=== PATIENT | female | born 1985 | race African-American/Black ===

== ENCOUNTER → 2020-03-06 | Outpatient (CLI) | payer OTHER | LOC: M.ULTRA 02-18 07:30 | PROVIDERS: ATTEND Registered Nurse Diabetes Educator | DX: R10.2 Pelvic and perineal pain (principal); R53.83 Other fatigue; M25.50 Pain in unspecified joint; G44.1 Vascular headache, not elsewhere classified; Z90.49 Acquired absence of other specified parts of digestive tract ==

== ENCOUNTER 2020-11-18 18:50 | Emergency (ER) | payer OTHER ==
[~2020-11-18] VITALS: Ht 162.6 cm; Wt 59.0 kg
[2020-11-18 19:36] LABS: URINE BILIRUBIN NEGATIVE (Negative); URINE BLOOD 3+ (Negative); URINE CLARITY CLEAR; URINE COLOR YELLOW; URINE GLUCOSE-RANDOM NEGATIVE (Negative); URINE KETONES TRACE (Negative); URINE LEUKOCYTES-REFLEX 1+ (Negative); URINE PROTEIN NEGATIVE (Negative); URINE UROBILINOGEN 0.2 E.U./dl (0.2-1.0)
[2020-11-18 19:39] LABS: ABSOLUTE EOSINOPHILS 0.1 thou/uL (0.0-0.7); ABSOLUTE LYMPHOCYTES 2.4 thou/uL (0.8-5.3); ABSOLUTE MONOCYTES 0.5 thou/uL (0.0-1.2); BASOPHILS 0.4 %; EOSINOPHILS 1.8 %; HEMATOCRIT 37.2 % (37.0-47.0); HEMOGLOBIN 12.2 gm/dL (12.0-15.0); LYMPHOCYTES 33.5 %; MCH 28.1 pg (26.0-34.0); MCHC 32.6 g/dL (28.0-37.0); MONOCYTES 7.6 %; MPV 7.2 fl. (7.2-11.1); NUCLEATED RBCS 0 /100WBC; PLATELET COUNT* 242 thou/uL (150-400); POLYS 56.7 %; RBC 4.33 mil/uL (4.20-5.00); RDW-CV 14.4 % (10.5-14.5); WBC 7.1 thou/uL (4.0-11.0)
[2020-11-18 19:45] LABS: CALCIUM 8.1 mg/dL (8.5-10.1); CREATININE 0.7 mg/dL (0.6-1.3); POTASSIUM 3.8 mmol/L (3.5-5.1)
[2020-11-18 19:49] LABS: ALBUMIN 3.6 g/dL (3.4-5.0); TOTAL BILIRUBIN 0.2 mg/dL (<0.1-1.0); TOTAL PROTEIN 7.5 g/dL (6.4-8.2)
[2020-11-18 19:50] LABS: URINE NITRITE-REFLEX POSITIVE (Negative)
[2020-11-18 19:54] LABS: SQUAMOUS 0-3 Few /LPF (0-3); URINE WBC-REFLEX 6-15 Few /HPF (0-5)
[2020-11-18 19:55] LABS: BACTERIA-REFLEX 1-9 Few /HPF (None Seen); CASTS None Seen /LPF (None Seen); CRYSTALS None Seen /LPF (None Seen); MUCUS None Seen strn/LPF (None Seen)
[2020-11-18] MEDS ORDERED: AUGMENTIN 875-1 EACH PO (21:37)
[2020-11-18] MEDS ORDERED: BENTYL 10 MG CA10 M1 PO (21:37)
[2020-11-18] MEDS ORDERED: PYRIDIUM100 M1 PO (21:37)
[2020-11-18 21:38] VITALS: BP 123/60
== END 2020-11-18 21:47 | disposition home or self-care (01) ==
LOC: M.ERS 18:50
PROVIDERS: Nurse Practitioner Family
DX: H66.92 Otitis media, unspecified, left ear (principal); N39.0 Urinary tract infection, site not specified; Z90.49 Acquired absence of other specified parts of digestive tract

== ENCOUNTER 2021-06-23 11:33 | Emergency (ER) | payer OTHER ==
[~2021-06-23] VITALS: Ht 160 cm; Wt 59.0 kg
[~2021-06-23 11:33] MED LIST: AUGMENTIN 875-1 EACH PO; BENTYL 10 MG CA10 M1 PO; PYRIDIUM100 M1 PO
[2021-06-23 13:14] LABS: URINE BILIRUBIN NEGATIVE (Negative); URINE BLOOD 2+ (Negative); URINE CLARITY SL CLOUDY; URINE COLOR YELLOW; URINE GLUCOSE-RANDOM NEGATIVE (Negative); URINE KETONES NEGATIVE (Negative); URINE LEUKOCYTES-REFLEX 2+ (Negative); URINE NITRITE-REFLEX POSITIVE (Negative); URINE PROTEIN 1+ (Negative); URINE SPECIFIC GRAVITY >= 1.030 (1.005-1.030); URINE UROBILINOGEN 0.2 E.U./dl (0.2-1.0)
[2021-06-23 13:18] LABS: ABSOLUTE EOSINOPHILS 0.1 thou/uL (0.0-0.7); ABSOLUTE LYMPHOCYTES 1.7 thou/uL (0.8-5.3); ABSOLUTE MONOCYTES 0.6 thou/uL (0.0-1.2); ABSOLUTE NEUTROPHILS 5.8 thou/uL (1.6-8.1); BASOPHILS 0.6 %; EOSINOPHILS 0.6 %; HEMATOCRIT 41.4 % (37.0-47.0); HEMOGLOBIN 13.4 gm/dL (12.0-15.0); MCH 27.8 pg (26.0-34.0); MCHC 32.4 g/dL (28.0-37.0); MCV 85.9 fL (80.0-100.0); MONOCYTES 7.5 %; MPV 7.2 fl. (7.2-11.1); NUCLEATED RBCS 0 /100WBC; PLATELET COUNT* 255 thou/uL (150-400); POLYS 70.3 %; RBC 4.83 mil/uL (4.20-5.00); RDW-CV 14.3 % (10.5-14.5); WBC 8.2 thou/uL (4.0-11.0)
[2021-06-23 13:26] LABS: SQUAMOUS >10 Many /LPF (0-3)
[2021-06-23 13:28] LABS: BACTERIA-REFLEX >30 Many /HPF (None Seen)
[2021-06-23 13:29] LABS: CASTS None Seen /LPF (None Seen); CRYSTALS None Seen /LPF (None Seen); URINE RBC 3-10 Few /HPF (0-2)
[2021-06-23 13:31] LABS: CALCIUM 8.8 mg/dL (8.5-10.1); CREATININE 1.1 mg/dL (0.6-1.3); POTASSIUM 3.3 mmol/L (3.5-5.1)
[2021-06-23 13:43] LABS: ALBUMIN 4.3 g/dL (3.4-5.0); TOTAL BILIRUBIN 0.5 mg/dL (<0.1-1.0); TOTAL PROTEIN 8.3 g/dL (6.4-8.2)
[2021-06-23] MEDS ORDERED: REGLAN 10 MG TA10 MG PO (15:26)
[2021-06-23] MEDS ORDERED: MACROBID 100 M100 M2 PO (15:26)
[2021-06-23] MEDS ORDERED: TRINATE TABLET1 EACH PO (15:26)
[2021-06-23 15:37] VITALS: BP 122/82
== END 2021-06-23 15:39 | disposition home or self-care (01) ==
LOC: M.ERS 11:33
PROVIDERS: Nurse Practitioner Family
DX: N39.0 Urinary tract infection, site not specified (principal); Z32.01 Encounter for pregnancy test, result positive; Z90.49 Acquired absence of other specified parts of digestive tract; Z91.040 Latex allergy status